=== PATIENT | male | born 1990 | race Hispanic/Latino ===

== ENCOUNTER 2020-05-10 04:28 | Emergency (ER) | payer OTHER, SELFPAY ==
[2020-05-10] MEDS ORDERED: Acetaminophen 500 MG TAB ONE (05:02)
[2020-05-10 10:43] LABS: SARS-CoV-2 MS2 Positive; SARS-CoV-2 N Gene Negative; SARS-CoV-2 S Gene Negative; SARS-CoV-2 by NAA Not Detected (NotDetected); SARS-CoV-2 orf1ab Negative
== END 2020-05-10 06:16 | disposition home or self-care (01) ==
LOC: ERS 04:28
DX: J02.9 Acute pharyngitis, unspecified (principal); Z20.828 Contact with and (suspected) exposure to other viral communicable diseases
CPT/HCPCS: 87081; 87430; 87635; 99283; U0003

== ENCOUNTER 2022-08-23 21:23 | Emergency (ER) | payer SELFPAY | END 2022-08-23 22:32 | disposition home or self-care (01) | LOC: ERS 21:23 | DX: L08.9 Local infection of the skin and subcutaneous tissue, unspecified (principal) | CPT/HCPCS: 99283 ==

== ENCOUNTER 2022-10-06 14:19 | Emergency (ER) | payer SELFPAY | END 2022-10-06 15:12 | disposition home or self-care (01) | LOC: ERS 14:19 | DX: S81.802D Unspecified open wound, left lower leg, subsequent encounter (principal); X58.XXXD Exposure to other specified factors, subsequent encounter | CPT/HCPCS: 99282 ==

== ENCOUNTER 2022-10-27 18:36 | Emergency (ER) | payer SELFPAY | END 2022-10-27 20:32 | disposition home or self-care (01) | LOC: ERS 18:36 | DX: S91.002A Unspecified open wound, left ankle, initial encounter (principal); L98.8 Other specified disorders of the skin and subcutaneous tissue | CPT/HCPCS: 99282 ==